=== PATIENT | male | born 1955 | race Caucasian/White ===

== ENCOUNTER 2017-09-13 17:09 | Inpatient (IN) | payer BC, OTHER ==
[2017-09-13] MEDS ORDERED: HYDROmorphONE/DILAUDID 1 MG/ML INJ ONE (17:42)
--- NOTE | 2017-09-13 17:43 | EDPHY ---
H & P Stated Complaint: r knee replacement monday now with fever/redness r knee Time Seen by Provider: 09/13/17 17:35 HPI/ROS: CHIEF COMPLAINT: Here for IV antibiotics HISTORY OF PRESENT ILLNESS: 61-year-old male with diabetes, 2 days s/p TKR, presents with fever and postoperative cellulitis. Onset of fever to 103 this morning. Associated with increasing pain rt knee. The pain is moderate to severe and unrelieved with oxycodone. He was seen by JALEN Argueta, just prior to arrival. Arthrocentesis of the right knee performed and revealed bloody fluid. The joint fluid was sent to the [facility] lab for analysis. Pt was sent to the emergency department for a first dose of IV vancomycin. His only c/ o is right knee pain and fever. No antipyretics today. REVIEW OF SYSTEMS: complete 10 point ROS negative except at noted in the HPI - Personal History Current Tetanus/Diphtheria Vaccine: Yes - Medical/Surgical History Hx Asthma: No Hx Chronic Respiratory Disease: No Hx Diabetes: Yes Hx Cardiac Disease: No Hx Renal Disease: No Hx Cirrhosis: No Hx Alcoholism: No Hx HIV/AIDS: No Hx Splenectomy or Spleen Trauma: No Other PMH: r knee surg/ diabetic - Social History Smoking Status: Former smoker Drug Use: None Additional Social History: - Physical Exam Exam: General Appearance: Alert, pleasant, nontoxic-appearing Eyes: Pupils equal and round, no conjunctival pallor or injection ENT, Mouth: Mucous membranes moist Neck: Normal inspection Respiratory: Lungs are clear to auscultation Cardiovascular: Regular rate and rhythm Gastrointestinal: Abdomen is soft and nontender Neurological: A&O, nonfocal exam Skin: Warm and dry Extremities: Right knee-the surgical wound is clean dry and intact. There is surrounding patchy erythema, warmth and tenderness on the anterior aspect of the right knee, approx 5cm in diameter, mild edema of the lower leg without tenderness Psychiatric: Mood and affect normal Constitutional: Initial Vital Signs Temperature (C) 37.2 C 09/13/17 17:14 Heart Rate 113 H 09/13/17 17:14 Respiratory Rate 22 H 09/13/17 17:14 Blood Pressure 123/83 H 09/13/17 17:14 O2 Sat (%) 93 09/13/17 17:14 O2 Delivery Mode Room Air Allergies/Adverse Reactions: No Known Allergies Allergy (Unverified 09/13/17 17:12) Home Medications: Medication Instructions Recorded Hydrochlorothiazide [HCTZ (*)] 50 mg PO DAILY 09/13/17 Losartan Potassium 100 mg PO DAILY 09/13/17 Metformin HCl [Metformin 1000 mg] 1,000 mg PO BIDMEAL 09/13/17 Pantoprazole Sodium [Protonix 40mg 40 mg PO DAILY 09/13/17 (*)] Simvastatin 20 mg PO DAILY 09/13/17 Warfarin Sodium [Coumadin 5MG (*)] 5 mg PO DAILY 09/13/17 glipiZIDE [Glipizide] 20 mg PO BID 09/13/17 Cephalexin [Keflex (*)] 500 mg PO QID #20 cap 09/15/17 Polyethylene Glycol 3350 [Miralax 17 gm PO DAILY PRN pkt 09/15/17 17 gm (*)] Sennosides/Docusate Sodium 1 - 2 tab PO BID tab 09/15/17 [Senokot-S] Medical Decision Making ED Course/Re-evaluation: This patient presents with postoperative cellulitis RLE. Meets SIRS criteria. Initial lactate is 2.7. Pt meets severe sepsis protocol. IV normal saline 30 mL /kilogram IV given. Consulted Dr. Steiner about IV abx choice and she requests Ancef IV. Consulted Ping Nguyen, will give pt Ancef 2gm IV, plan to admit/ transfer patient. She will d/w Dr. Alexander and c/b. Consulted Dr. Alexander, will admit pt for IV abx. Requests formal ID consultation. Dr. Steiner saw pt in ED. Repeat lactate 1.7. BP/HR stable throughout ED stay. Hospitalist service consulted for admission. Differential Diagnosis: Differential diagnosis includes joint infection, DVT, UTI, influenza, cellulitis , pneumonia, abscess, meningitis. - Data Points Laboratory Results: Laboratory Results 09/13/17 17:35 09/13/17 17:35 Microbiology Results: MICROBIOLOGY 09/13/17 18:10 Blood Blood Culture - Preliminary 09/13/17 17:35 Blood Blood Culture - Preliminary Medications Given: Discontinued Medications Acetaminophen (Tylenol) 650 mg PO EDNOW ONE Stop: 09/13/17 18:03 Last Admin: 09/13/17 18:06 Dose: 650 mg Acetaminophen (Tylenol) 650 mg PO Q4HRS PRN PRN Reason: Pain, Mild/Fever, Can Take PO Stop: 03/12/18 19:42 Last Admin: 09/14/17 08:59 Dose: 650 mg Atorvastatin Calcium (Lipitor) 10 mg PO DAILY [facility] Stop: 03/13/18 08:59 Last Admin: 09/15/17 08:09 Dose: 10 mg Glipizide (Glucotrol) 20 mg PO BIDMEAL [facility] Stop: 03/13/18 07:59 Last Admin: 09/15/17 08:08 Dose: 20 mg Hydrochlorothiazide (Hydrochlorothiazide) 50 mg PO DAILY [facility] Stop: 03/13/18 08:59 Last Admin: 09/15/17 08:08 Dose: 50 mg Hydromorphone HCl (Dilaudid) 1 mg IVP EDNOW ONE Stop: 09/13/17 17:45 Last Admin: 09/13/17 17:50 Dose: 1 mg Hydromorphone HCl (Dilaudid) 0.2 - 1 mg IVP Q2 PRN PRN Reason: Pain, Severe Unable to Take PO Stop: 09/23/17 19:42 Last Admin: 09/14/17 00:37 Dose: 1 mg Hydromorphone HCl (Dilaudid) 2 mg PO Q4HRS PRN PRN Reason: Pain, Severe Able to Take PO Stop: 09/23/17 19:42 Last Admin: 09/15/17 12:10 Dose: 2 mg Sodium Chloride (Ns) 1,000 mls @ 0 mls/hr IV ONCE ONE PRN Reason: Wide Open Stop: 09/13/17 17:45 Last Admin: 09/13/17 17:49 Dose: 1,000 mls Sodium Chloride (Ns) 2,900 mls @ 5,800 mls/hr 30 ml/kg infuse over 30 min ( 2900 ml) IV EDNOW ONE PRN Reason: Protocol Stop: 09/13/17 18:32 Last Admin: 09/13/17 18:16 Dose: 1,900 mls Vancomycin/Sodium Chloride (Vancomycin 1 Gm (Premix)) 250 mls @ 250 mls/hr IV EDNOW ONE PRN Reason: Protocol Stop: 09/13/17 19:06 Last Admin: 09/13/17 18:50 Dose: Not Given Cefazolin Sodium/Dextrose (Ancef 2 Gm) 100 mls @ 200 mls/hr IV EDNOW ONE PRN Reason: Protocol Stop: 09/13/17 18:44 Last Admin: 09/13/17 18:43 Dose: 100 mls Sodium Chloride (Ns) 1,000 mls @ 100 mls/hr IV CONT MICHELLE Stop: 03/12/18 19:44 Last Admin: 09/14/17 09:03 Dose: 1,000 mls Cefazolin Sodium 2 gm/ (Dextrose) 100 mls @ 200 mls/hr IV Q8H MICHELLE Stop: 10/14/17 01:59 Last Admin: 09/15/17 02:16 Dose: 100 mls Cefazolin Sodium/Dextrose (Ancef 2 Gm) 100 mls @ 200 mls/hr IV Q8H MICHELLE Stop: 10/15/17 09:59 Last Admin: 09/15/17 09:50 Dose: 100 mls Insulin Human Lispro (Humalog Lispro) 0 unit SC TIDMEAL MICHELLE PRN Reason: Protocol Stop: 03/13/18 17:59 Last Admin: 09/15/17 12:11 Dose: 2 units Losartan Potassium (Cozaar) 100 mg PO DAILY [facility] Stop: 03/13/18 08:59 Last Admin: 09/15/17 08:10 Dose: 100 mg Metformin HCl (Glucophage) 1,000 mg PO BIDMEAL [facility] Stop: 03/13/18 07:59 Last Admin: 09/15/17 08:08 Dose: 1,000 mg Methocarbamol (Robaxin) 750 mg PO TID PRN PRN Reason: Spasms Stop: 03/13/18 15:14 Last Admin: 09/15/17 08:09 Dose: 750 mg Pantoprazole Sodium (Protonix) 40 mg PO DAILY [facility] Stop: 03/13/18 08:59 Last Admin: 09/15/17 08:10 Dose: 40 mg Pneumococcal Polyvalent Vaccine (Pneumovax 23) 0.5 ml IM .ONCE ONE Stop: 09/14/17 16:01 Last Admin: 09/14/17 16:55 Dose: 0.5 ml Senna/Docusate Sodium (Senokot-S) 1 - 2 tab PO BID MICHELLE PRN Reason: Protocol Stop: 03/12/18 20:59 Last Admin: 05/25/18 08:09 Dose: 2 tab Warfarin Sodium (Coumadin) 5 mg PO DAILY@1600 MICHELLE Stop: 03/13/18 15:59 Last Admin: 09/14/17 15:35 Dose: 5 mg Departure - Departure Disposition: [facility] Acute Clinical Impression: Cellulitis Qualifiers: Site of cellulitis: extremity Site of cellulitis of extremity: lower extremity Laterality: right Qualified Code(s): L03.115 - Cellulitis of right lower limb Condition: Fair
[2017-09-13] MEDS ORDERED: NS 1,000 ML IV ONE (17:44)
[2017-09-13] MEDS ORDERED: HYDROmorphONE/DILAUDID 2 MG/ML INJ IVP ONE (17:44)
[2017-09-13 17:58] LABS: PLATELET COUNT 236 10^3/uL (150-400)
[2017-09-13] MEDS ORDERED: ACETAMINOPHEN 325 MG TAB PO ONE (18:02)
[2017-09-13] MEDS ORDERED: NS 2,900 ML IV ONE (18:03)
[2017-09-13] MEDS ORDERED: VANCOMYCIN HCL/NORMAL SALINE 250 ML IV ONE (18:07)
[2017-09-13] MEDS ORDERED: ceFAZolin 2 GM/DEXTROSE 100 ML IV ONE (18:15)
[2017-09-13] MEDS ORDERED: ONDANSETRON DISINTEGRATING 4 MG TAB PO PRN (19:43)
[2017-09-13] MEDS ORDERED: ONDANSETRON 4 MG/2 ML VIAL IVP PRN (19:43)
[2017-09-13] MEDS ORDERED: IBUPROFEN 200 MG TAB PO PRN (19:43)
[2017-09-13] MEDS ORDERED: ACETAMINOPHEN 325 MG TAB PO PRN (19:43)
[2017-09-13] MEDS ORDERED: LACTULOSE 20 GM/30 ML UDCUP PO PRN (19:45)
[2017-09-13] MEDS ORDERED: BISACODYL 10 MG SUPP PR PRN (19:45)
[2017-09-13] MEDS ORDERED: MAGNESIUM HYDROXIDE 30 ML UDCUP PO PRN (19:45)
[2017-09-13] MEDS ORDERED: POLYETHYLENE GLYCOL 3350 17 GM PKT PO PRN (19:45)
[2017-09-13] MEDS: HYDROmorphONE/DILAUDID 1 MG/ML INJ IVP PRN (20:46)
[2017-09-13] MEDS: SENNOSIDES/DOCUSATE SODIUM TAB PO SCH (22:35)
[2017-09-13] MEDS: HYDROmorphONE/DILAUDID 2 MG TAB PO PRN (22:35)
[2017-09-13] MEDS: NS 1,000 ML IV SCH (22:47)
--- NOTE | 2017-09-13 23:26 | GCON ---
[f rep st] CONSULTATION INFECTIOUS DISEASE CONSULTATION DATE OF CONSULTATION: 09/13/2017 REFERRING PHYSICIAN: Hortensia Alexander MD REASON FOR CONSULTATION: Cellulitis versus septic arthritis following right total knee arthroplasty 09/11/2017. HISTORY OF PRESENT ILLNESS: A 61-year-old male with type 2 diabetes, who underwent a right total kne e arthroplasty 09/11/2017 at [facility]. He received perioperative antibiotics, but before that last rec eived antibiotics 2 months ago for a dental extraction. He thinks it was amoxicillin. Patient initi ally did well following his procedure, but the day after discharge he developed massive pain of the r ight leg, decreased ability to flex his knee, inability to sleep due to the pain, and a temperature t o 101. He also described associated malaise. He was seen by Dr. Alexander's PA earlier today, and unde rwent a joint aspiration, which revealed bloody fluid. Cultures and Gram stain are pending. Cell count was not sent. Patient denies any history of MRSA. He has had a multitude of prior orthopedic surgeries without inf ectious complications previously. REVIEW OF SYSTEMS: A complete 10-point review of systems was performed, and is negative except as me ntioned in the HPI. Patient notes a GI illness 2 weeks ago that is now completely resolved. No rece nt significant weight loss or weight gain. PAST MEDICAL AND SURGICAL HISTORY: Patient has had 8 arthroscopic procedures between his bilateral k nees. Bilateral shoulder surgery. Also, 8 surgeries between his 2 feet. Diabetes, with a last hemo globin A1c of 7.3. He has a hiatal hernia and hypertension. He states that he has been evaluated fo r coronary artery disease, and this is negative. ALLERGIES: NKDA. MEDICATIONS: Include glipizide, Protonix, metformin, insulin, hydrochlorothiazide, simvastatin, and oxycodone postoperatively, and losartan. FAMILY HISTORY: Positive for diabetes in his brother and coronary arteries in his brother, with sudd en at age 59. SOCIAL HISTORY: He has a remote history of tobacco over 30 years ago. He is . 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 No international travel. They have a dog, and he is originally from [email or web address]. PHYSICAL EXAMINATION: VITAL SIGNS: Blood pressure 153/74, heart rate is initially 113, down to 98. Respiratory rate 24. Saturation 96% on 2 L. Temperature 37.2. GENERAL: This is a very pleasant m trinh lying in bed. His is at bedside. HEENT: Fair dentition, moist mucous membranes. Pupils a re reactive bilaterally. No conjunctival hemorrhages. NECK: Supple. CARDIOVASCULAR: Borderline ta chycardia. Regular rate. No murmurs. CHEST: Clear to auscultation bilaterally. ABDOMEN: Soft, n ontender. EXTREMITIES: His right knee exam showed an anterior incision over the knee with susy in place. No purulent discharge. Patient had very faint erythema medially, somewhat unimpressive, wit hout lymphangitis. He had significant tenderness over palpation of the prepatellar bursa, and marked warmth, with significant pain with flexion of the knee. He had no Homans sign. Pulses were 2+ bila terally. NEUROLOGIC: He is alert oriented x4. Moving all 4 extremities equally. LABORATORY: White count 10, hematocrit 35, platelets of 236; 71% neutrophils, 12% lymphocytes, 14% m onocytes. Lactic acid 2.7. Creatinine 0.9, sodium 133, glucose 326. Blood cultures and synovial cu lture pending. No imaging was performed. ASSESSMENT AND PLAN: This is a 61-year-old male who underwent a right total knee arthroplasty at [facility] on 09/11/2017, who developed acute signs and symptoms of infection associated with his knee, with massive pain, malaise, and fever to 101. Skin exam is fairly unremarkable, with very mild unimpress jovanna erythema more medial to the knee incision. More impressively, patient with significant tendernes s to palpation over the knee itself with significant limited range of motion due to pain. Certainly, differential diagnosis is cellulitis versus septic arthritis. Current signs give me significant con cern for deeper infection. In the meantime, will follow cultures and start patient on high-dose Ancef for coverage of methicilli n-sensitive Staphylococcus aureus and streptococcus. Patient has minimal risk for methicillin-resist ant Staphylococcus aureus. No purulence was noted. Discussed the differential diagnosis with the chai orozco and his at the bedside, including chance of septic arthritis, need for washout, and prolon ged IV antibiotic therapy. We will continue to see this patient on a daily basis. Thank you for the consultation. /[id number]/MODL
--- NOTE | 2017-09-13 23:27 | PDGENHP ---
History and Physical - Chief Complaint Acute knee pain - History of Present Illness Primary orthopedist: Dr. Alexander HPI: 61-year-old male presenting with acute fever characterized as a temperature of a 103 degrees F with onset of symptoms on the morning of this presentation and associated with pain and swelling located in his right knee and proximal right lower extremity. Pain is exacerbated by both flexion and extension of the knee and has been somewhat alleviated by Dilaudid received in the emergency department. He also reports some constipation since being discharged home but has been alleviated with bowel regiment. He presented to the [facility], on aspirate was performed which demonstrated both white blood cells and red blood cells, and he was sent to the emergency department for IV antibiotics. Of note, the patient had right knee surgery on 09/[address] Alexander, and he was discharged home with oral Coumadin, no bridge. History Information - Allergies/Home Medication List Allergies/Adverse Reactions: No Known Allergies Allergy (Unverified 09/13/17 17:12) Home Medications: Hydrochlorothiazide [HCTZ (*)] 50 mg PO DAILY 09/13/17 [Last Taken Unknown] Losartan Potassium 100 mg PO DAILY 09/13/17 [Last Taken 09/13/17] Metformin HCl [Metformin 1000 mg] 1,000 mg PO BIDMEAL 09/13/17 [Last Taken 09/13 08:00] Pantoprazole Sodium [Protonix 40mg (*)] 40 mg PO DAILY 09/13/17 [Last Taken Unknown] Simvastatin 20 mg PO DAILY 09/13/17 [Last Taken Unknown] Warfarin Sodium [Coumadin 5MG (*)] 5 mg PO DAILY 09/13/17 [Last Taken 09/13/17] glipiZIDE [Glipizide] 20 mg PO BID 09/13/17 [Last Taken 09/13/17 08:00] I have personally reviewed and updated: family history, medical history, social history, surgical history - Past Medical History diabetes type 2 (With oral agents, most recent hemoglobin A1c 7.3% April 2017) - Surgical History Additional surgical history: 09/11 right total knee arthroplasty. Bilateral foot surgery. Bilateral shoulder surgery. Bilateral knee surgery - Family History Additional family history: No family history of venous thromboembolism - Social History Smoking Status: Former smoker Alcohol Use: None Drug Use: None Additional social history: Previously independent in ADLs Review of Systems Review of Systems: ROS: 10pt was reviewed & negative except for what was stated in HPI & below Constitutional: Reports: fever Gastrointestinal: Reports: constipation Muscolosketal: Reports: joint pain, joint swelling Skin: Reports: other (Swelling right lower extremity) Physical Exam Physical Exam: Temp Pulse Resp BP Pulse Ox 37.2 C 101 H 18 154/87 H 92 09/13/17 17:14 09/13/17 21:10 09/13/17 21:10 09/13/17 21:10 09/13/17 21:10 O2 (L/minute) 2 Constitutional: no apparent distress, appears nourished, not in pain, uncomfortable Eyes: PERRL, anicteric sclera, EOMI Ears, Nose, Mouth, Throat: moist mucous membranes, hearing normal, ears appear normal, no oral mucosal ulcers Cardiovascular: tachycardia, edema (1+ right lower extremity), No systolic murmur, No irregularly irregular Respiratory: no respiratory distress, no rales or rhonchi, clear to auscultation Gastrointestinal: normoactive bowel sounds, soft, non-tender abdomen, no palpable masses, No guarding, No distension Skin: other (Warmth, blanching over the right knee with mild erythema) Musculoskeletal: other (Pain on full extension of right knee, pain with flexion at 30 degrees) Neurologic: AAOx3, sensation intact bilaterally (Distal to the right knee), No weakness (Full range of motion right ankle) Psychiatric: interacting appropriately, not anxious, not encephalopathic, thought process linear Lab Data & Imaging Review 09/13/17 17:35 09/13/17 17:35 WBC 10.18 10^3/uL (3.80-9.50) H 09/13/17 17:35 RBC 4.20 10^6/uL (4.40-6.38) L 09/13/17 17:35 Hgb 11.9 g/dL (13.7-17.5) L 09/13/17 17:35 Hct 35.0 % (40.0-51.0) L 09/13/17 17:35 MCV 83.3 fL (81.5-99.8) 09/13/17 17:35 MCH 28.3 pg (27.9-34.1) 09/13/17 17:35 MCHC 34.0 g/dL (32.4-36.7) 09/13/17 17:35 RDW 13.5 % (11.5-15.2) 09/13/17 17:35 Plt Count 236 10^3/uL (150-400) 09/13/17 17:35 MPV 11.8 fL (8.7-11.7) H 09/13/17 17:35 Neut % (Auto) 71.4 % (39.3-74.2) 09/13/17 17:35 Lymph % (Auto) 12.3 % (15.0-45.0) L 09/13/17 17:35 [place] % (Auto) 14.4 % (4.5-13.0) H 09/13/17 17:35 Eos % (Auto) 0.8 % (0.6-7.6) 09/13/17 17:35 Baso % (Auto) 0.7 % (0.3-1.7) 09/13/17 17:35 Nucleat RBC Rel Count 0.0 % (0.0-0.2) 09/13/17 17:35 Absolute Neuts (auto) 7.27 10^3/uL (1.70-6.50) H 09/13/17 17:35 Absolute Lymphs (auto) 1.25 10^3/uL (1.00-3.00) 09/13/17 17:35 Absolute Monos (auto) 1.47 10^3/uL (0.30-0.80) H 09/13/17 17:35 Absolute Eos (auto) 0.08 10^3/uL (0.03-0.40) 09/13/17 17:35 Absolute Basos (auto) 0.07 10^3/uL (0.02-0.10) 09/13/17 17:35 Absolute Nucleated RBC 0.00 10^3/uL (0-0.01) 09/13/17 17:35 Immature Gran % 0.4 % (0.0-1.1) 09/13/17 17:35 Immature Gran # 0.04 10^3/uL (0.00-0.10) 09/13/17 17:35 VBG Lactic Acid 1.7 mmol/L (0.7-2.1) 09/13/17 19:27 Sodium 133 mEq/L (135-145) L 09/13/17 17:35 Potassium 4.3 mEq/L (3.3-5.0) 09/13/17 17:35 Chloride 99 mEq/L (97-110) 09/13/17 17:35 Carbon Dioxide 21 mEq/l (22-31) L 09/13/17 17:35 Anion Gap 13 mEq/L (8-16) 09/13/17 17:35 BUN 17 mg/dL (7-23) 09/13/17 17:35 Creatinine 0.9 mg/dL (0.7-1.3) 09/13/17 17:35 Estimated GFR > 60 09/13/17 17:35 Glucose 326 mg/dL (70-100) H 09/13/17 17:35 Calcium 8.6 mg/dL (8.5-10.4) 09/13/17 17:35 Synovial Source SYNOVIAL 09/13/17 16:20 Synovial Color RED (CLS/PALE YL) 09/13/17 16:20 Synovial Appearance HAZY (CLEAR) H 09/13/17 16:20 Synovial WBC 2868 /mm3 (0-150) H 09/13/17 16:20 Synovial RBC 312985 /mm3 (0-0) H 09/13/17 16:20 Synovial Neutrophils 96 % (0-25) H 09/13/17 16:20 Synovial Lymphocytes 3 % 09/13/17 16:20 Synov Monos/Macrophage 1 % 09/13/17 16:20 Assessment & Plan Assessment: 61-year-old male presents with acute fever and right lower extremity pain and swelling, suggestive of possible septic arthritis following recent right knee surgery Plan: 1. Possible septic arthritis. Acute, new problem this provider, further workup indicated. Arthrocentesis demonstrating bloody fluid with many white blood cells, area painful, swollen, orthopedics requesting IV antibiotics -discussed with Dr. Carol Varela, she reports to me that infectious Diseases been consulted and IV Ancef has been recommended -will order outside records including culture results from arthrocentesis sent from Dr. Alexander office -if there are no organisms in the arthrocentesis, it is possible that the affected area may be more cellulitic in nature and will continue monitoring the patient's skin and joint exam -monitor white blood cell count 2. Acute metabolic acidosis. Secondary to hypovolemia in the setting of infection, initial lactic acid 2.7, downtrend to 1.7 with IV fluids 3. Diabetes mellitus type 2 with hyperglycemia. Reviewed outside records including previous historic hemoglobin A1c of 6.5% on 10/23/2008, patient reports he was most recently 7.3%, and has been reasonably controlled on oral home medications -continue home medications -if patient's level is substantially elevated in a.m., continue him on insulin sliding scale 4. Osteoarthritis. Recent right total knee surgery at [facility] on 2017 -requires ongoing DVT prevention, check INR in a.m., continue Coumadin, held today's dose given the potential of hemarthrosis -SCDs in the interim -defer to Orthopedics whether they would like to continue pharmacologic prophylaxis or mechanical, given the potential of concomitant heme arthrosis Diet. Diabetic Prophylaxis. SCDs tonight, continue Coumadin tomorrow checking daily INR Code. Full per patient, is POEstella Disposition. Anticipated discharge is 09/14, pending clinical improvement of above. If patient requires joint washout, he will require upgraded to inpatient admission status for surgical debridement and ongoing use of IV antibiotics
[2017-09-14] MEDS: HYDROmorphONE/DILAUDID 1 MG/ML INJ IVP PRN (00:37)
[2017-09-14] MEDS: ceFAZolin 2 GM in D5W 100 ML IV SCH ×3 (01:15→17:59)
[2017-09-14] MEDS ORDERED: ceFAZolin 2 GM/DEXTROSE 100 ML IV SCH (02:00)
[2017-09-14 04:41] LABS: PLATELET COUNT 196 10^3/uL (150-400)
[2017-09-14 04:43] LABS: INR 1.48 (0.83-1.16); PROTIME(PATIENT) 18.1 SEC (12.0-15.0)
[2017-09-14] MEDS: HYDROmorphONE/DILAUDID 2 MG TAB PO PRN ×4 (06:02→19:46)
[2017-09-14] MEDS: LOSARTAN POTASSIUM 50 MG TAB PO SCH (08:58)
[2017-09-14] MEDS: metFORMIN HCL 500 MG TAB PO SCH ×2 (08:59→17:58)
[2017-09-14] MEDS: ATORVASTATIN CALCIUM 10 MG TAB PO SCH (08:59)
[2017-09-14] MEDS ORDERED: ENOXAPARIN 40 MG/0.4 ML SYR SC SCH (09:00)
[2017-09-14] MEDS: HYDROCHLOROTHIAZIDE 50 MG TAB PO SCH (09:00)
[2017-09-14] MEDS: SENNOSIDES/DOCUSATE SODIUM TAB PO SCH ×2 (09:00→19:47)
[2017-09-14] MEDS: PANTOPRAZOLE SODIUM 40 MG TAB PO SCH (09:00)
[2017-09-14] MEDS: glipiZIDE 10 MG TAB PO SCH ×2 (09:00→17:58)
[2017-09-14] MEDS: NS 1,000 ML IV SCH (09:03)
--- NOTE | 2017-09-14 09:30 | ASMTCASEMG ---
Living Arrangements What is your living Answers: With Spouse arrangement? Who do you live with? Type Of Residence What kind of residence do Answers: House you live in? Discharge Plan Comments Coordination Status Comments Notes: Pt is a 61 y/o man admitted for rle cellulitis. Therapies have been ordered and awaiting recommendations. Needs are TBD at this time. CM to follow. Plan: TBD Date Signed: 09/14/2017 09:29 AM Electronically Signed By:SENAIT Newman
--- NOTE | 2017-09-14 09:43 | HOSPPROG ---
Hospitalist Progress Note Assessment/Plan: Carl English is a 61-year-old male who underwent a right total knee arthroplasty at [facility] on September 11. He developed increased pain, malaise and fever to 101. The patient is having significant tenderness over the knee itself with limited range of motion. Today is my 1st encounter with the patient. Chart reviewed. * septic arthritis versus cellulitis -appreciate Infectious Disease seeing the patient -he is on high-dose Ancef for coverage of MSSA and Streptococcus -wbc count in synovial fluid is 2868, high rbc count, appears to be more r/t inflammatory response * metabolic acidosis -resolved *anemia -from recent surgery * diabetes type 2 -glucoses elevated -add sliding scale insulin * osteoarthritis * DVT prophylaxis -on sequential hose as well as Coumadin * reviewed his care w ID, Dr Malone, will require another midnight stay for IV antibiotics Subjective: Carl is c/o ongoing pain to his right knee. Objective: Vital Signs Temp Pulse Resp BP Pulse Ox 36.7 C 96 16 169/91 H 97 09/14/17 07:52 09/14/17 07:52 09/14/17 07:52 09/14/17 08:58 09/14/17 07:52 Laboratory Results 09/14/17 04:20 09/14/17 04:20 09/13/17 09/14/17 09/15/17 05:59 05:59 05:59 Intake Total 3940 Output Total 700 Balance 3240 PT 18.1 SEC (12.0-15.0) H 09/14/17 04:20 INR 1.48 (0.83-1.16) H 09/14/17 04:20 - Physical Exam Constitutional: appears nourished, uncomfortable Eyes: PERRL Ears, Nose, Mouth, Throat: hearing normal Cardiovascular: regular rate and rhythym Respiratory: no respiratory distress Skin: warm, other (right knee area with dressing in place, redness and warmth noted below the knee area down the calf) ICD10 Worksheet Patient Problems: Problems Problem Status Onset Cellulitis Acute
[2017-09-14] MEDS ORDERED: PNEUMOCOCCAL 0.5ML VACCINE VIAL IM ONE ×2 (11:43→16:00)
--- NOTE | 2017-09-14 13:56 | PDMN ---
Medical Necessity Medical necessity: Pt meets INPT criteria per and [facility] M-70 Cellulitis ( septic arthritis vs cellulitis in pt who underwent TKA 09/11/17; requiring high- dose IV Ancef; hx DM; est. LOS >2 MN).
[2017-09-14] MEDS ORDERED: D50W 25 GM/50 ML SYR IVP PRN (15:08)
--- NOTE | 2017-09-14 15:18 | PDCONSULT ---
Pension Manager Note: Patient still with right knee pain and swelling, but is only 3 days postop. PE: moderate knee effusion, no wound drainage. There does seem to be some patchy erythema about the knee/ leg. Aspirate was consistent with blood, no organisms seen on gram stain. Cultures no growth, preliminary. Assess/Plan: Clinically more likely to represent postoperative hemarthrosis with possible early cellulitis. Certainly if the deep cultures reveal infection , he will need surgical treatment. Otherwise, agree with antibiotics and will follow closely.
[2017-09-14] MEDS: METHOCARBAMOL 500 MG TAB PO PRN (15:34)
[2017-09-14] MEDS ORDERED: WARFARIN SODIUM 5 MG TAB PO SCH (16:00)
[2017-09-14] MEDS: INSULIN LISPRO 100 UNIT/ML SC SCH (16:54)
--- NOTE | 2017-09-14 17:13 | PCMIDPN ---
Assessment/Plan: Assessment: Right knee inflammation-unclear if this represents infection versus hemarthrosis. The cell count of the fluid drawn from the knee just prior to admission is more consistent with blood. There is no growth in culture at this point. Plan to continue IV cefazolin for the next day and allow maturation of the culture. If the culture continues to show no growth then potentially we can change him to oral antibiotic for short 7 day course directed to soft tissue cellulitis and allow him to go home. Case discussed with Dr. Alexander. Plan: 1. Continue IV cefazolin. 2. Follow the joint fluid culture closely. 3. Possible change to oral antibiotics and discharge if no further concerning data uncovered. 09/14/17 17:13 Subjective: Patient is resting in his hospital bed. He has 2 visitors. He has no new complaint. States that his knee is still somewhat painful to put weight on. It is less swollen than admission. No fevers or chills currently although he did have some fever prior to admission. Objective: Cefazolin # 1 Vital Signs Temp Pulse Resp BP Pulse Ox 36.8 C 109 H 18 165/93 H 96 09/14/17 15:33 09/14/17 15:33 09/14/17 15:33 09/14/17 15:33 09/14/17 15:33 Laboratory Results 09/14/17 04:20 09/14/17 04:20 09/13/17 09/14/17 09/15/17 05:59 05:59 05:59 Intake Total 3940 450 Output Total 700 200 Balance 3240 250 - Physical Exam General Appearance: WD/WN, alert, no apparent distress, non-toxic Respiratory: lungs clear, normal breath sounds, No respiratory distress Cardiac/Chest: regular rate, rhythm, No bradycardia, No systolic murmur Extremities: inflammation (Mild right knee), erythema (Mild right knee), No non- tender, No normal inspection Skin: normal color, warm/dry, No rash Neuro/Psych: alert, normal mood/affect, oriented x 3 ICD10 Worksheet Patient Problems: Problems Problem Status Onset Cellulitis Acute
[2017-09-15] MEDS: HYDROmorphONE/DILAUDID 2 MG TAB PO PRN ×3 (02:16→12:10)
[2017-09-15] MEDS: ceFAZolin 2 GM in D5W 100 ML IV SCH (02:16)
[2017-09-15 05:19] LABS: INR 1.32 (0.83-1.16); PROTIME(PATIENT) 16.6 SEC (12.0-15.0)
[2017-09-15 07:38] VITALS: BP 144/84
[2017-09-15] MEDS: metFORMIN HCL 500 MG TAB PO SCH (08:08)
[2017-09-15] MEDS: glipiZIDE 10 MG TAB PO SCH (08:08)
[2017-09-15] MEDS: HYDROCHLOROTHIAZIDE 50 MG TAB PO SCH (08:08)
[2017-09-15] MEDS: SENNOSIDES/DOCUSATE SODIUM TAB PO SCH (08:09)
[2017-09-15] MEDS: METHOCARBAMOL 500 MG TAB PO PRN (08:09)
[2017-09-15] MEDS: ATORVASTATIN CALCIUM 10 MG TAB PO SCH (08:09)
[2017-09-15] MEDS: LOSARTAN POTASSIUM 50 MG TAB PO SCH (08:10)
[2017-09-15] MEDS: PANTOPRAZOLE SODIUM 40 MG TAB PO SCH (08:10)
[2017-09-15] MEDS: INSULIN LISPRO 100 UNIT/ML SC SCH ×2 (08:11→12:11)
--- NOTE | 2017-09-15 09:10 | SOAPPROG ---
SOAP Progress Note Assessment/Plan: Assessment:Pt. is POD #4 s/p Right TKA. He was admitted for possible cellulitis of the right knee after presenting to the orthopedic urgent care with a fever and some redness at the medial incision line. He was admitted to [facility] 2 days ago for IV antibiotics as we await knee aspirate culture results. Plan: Continue to watch for culture results and likely discharge pt on po antibiotics today if they remain negative. Pts. INR is 1.3, Dr. Alexander would like to increase pts. coumadin to 7.5 mg today and then alternate 5mg./7.5 mg. every other day. Called Pharmacy to put order in so that it was clear. Continue PT/OT WBAT Ice Continue pain medications Continue SCD's Follow up with Dr. Alexander in the office next Monday or in [place]- call [phone] to schedule. Will continue to follow at [facility]. Subjective: Pt. is still having a lot of pain and difficulty in initiating movement of the leg. The redness has improved, no further fevers, pt. has been feeling well with no DELEON's, body aches, SOB, CP, calf pain, N/T of the extremities. Objective: Pt. is awake, sitting up in bed answering questions appropriately, in NAD. Respirations easy, no diaphoresis. The right knee incision is well healing, clean with no redness or warmth around it. It appears to be improved. There is warmth to the lower leg and ecchymosis at the medial upper thigh as well as below the incision in the lower leg. Calves are soft and supple with no tenderness. Pt. is NVI to the RLE. 09/15/17 08:56 Objective: Vital Signs Temp Pulse Resp BP Pulse Ox 36.7 C 94 16 144/84 H 96 09/15/17 07:37 09/15/17 07:37 09/15/17 07:37 09/15/17 08:10 09/15/17 07:37 Laboratory Results 09/14/17 04:20 09/14/17 04:20 09/14/17 09/15/17 09/16/17 05:59 05:59 05:59 Intake Total 3940 750 Output Total 700 200 Balance 3240 550 PT 16.6 SEC (12.0-15.0) H 09/15/17 04:25 INR 1.32 (0.83-1.16) H 09/15/17 04:25 ICD10 Worksheet Patient Problems: Problems Problem Status Onset Cellulitis Acute
[2017-09-15] MEDS ORDERED: ceFAZolin 2 GM/DEXTROSE 100 ML IV SCH (10:00)
--- NOTE | 2017-09-15 11:21 | PCMIDPN ---
Assessment/Plan: Assessment: Right knee inflammation-unclear if this represents infection versus hemarthrosis. The cell count of the fluid drawn from the knee just prior to admission is more consistent with blood. There is no growth in culture still at this point. Plan to change person to oral Keflex 500 mg 4 times a day for total of 7 days. Patient can follow up as an outpatient at this point. 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 2. Continue to follow the joint fluid culture closely as an outpatient. 09/14/17 17:13 09/15/17 15:12 Subjective: Patient states that the knee feels about the same. Possibly a little less tender. No fevers or chills. Objective: Cefazolin # 2 Vital Signs Temp Pulse Resp BP Pulse Ox 36.7 C 94 16 144/84 H 96 09/15/17 07:37 09/15/17 07:37 09/15/17 07:37 09/15/17 08:10 09/15/17 07:37 Laboratory Results 09/14/17 04:20 09/14/17 04:20 09/14/17 09/15/17 09/16/17 05:59 05:59 05:59 Intake Total 3940 750 Output Total 700 200 Balance 3240 550 - Physical Exam General Appearance: WD/WN, alert, non-toxic Respiratory: lungs clear, normal breath sounds, No respiratory distress Cardiac/Chest: regular rate, rhythm, No tachycardia Extremities: inflammation (Mild right knee), erythema (Mild right knee), No non- tender, No normal inspection Skin: normal color, warm/dry, No rash Neuro/Psych: alert, normal mood/affect, oriented x 3 ICD10 Worksheet Patient Problems: Problems Problem Status Onset Cellulitis Acute
--- NOTE | 2017-09-15 11:29 | HOSPPROG ---
Hospitalist Progress Note Assessment/Plan: Carl English is a 61-year-old male who underwent a right total knee arthroplasty at [facility] on September 11. He developed increased pain, malaise and fever to 101. The patient is having significant tenderness over the knee itself with limited range of motion. *Right knee inflammation- infection versus hemarthrosis. -appreciate Infectious Disease seeing the patient -reviewed his care w Turned, will dc home on Keflex * metabolic acidosis -resolved *anemia -from recent surgery * diabetes type 2 -glucoses elevated -A1c is 8.1 with average glucose of 14 -patient says he takes insulin prn, not really checking glucoses and sliding scale * osteoarthritis * DVT prophylaxis -on sequential hose as well as Coumadin *Plan: dc home w close f/u with orthopedics, he needs a PCP in the [place] area , needs INR followed. * Subjective: Carl said his knee is feeling better. Objective: Vital Signs Temp Pulse Resp BP Pulse Ox 36.7 C 94 16 144/84 H 96 09/15/17 07:37 09/15/17 07:37 09/15/17 07:37 09/15/17 08:10 09/15/17 07:37 Laboratory Results 09/14/17 04:20 09/14/17 04:20 09/14/17 09/15/17 09/16/17 05:59 05:59 05:59 Intake Total 3940 750 Output Total 700 200 Balance 3240 550 PT 16.6 SEC (12.0-15.0) H 09/15/17 04:25 INR 1.32 (0.83-1.16) H 09/15/17 04:25 - Physical Exam Constitutional: no apparent distress, appears nourished Eyes: PERRL Ears, Nose, Mouth, Throat: hearing normal Cardiovascular: regular rate and rhythym Respiratory: no respiratory distress Skin: warm, other (right lower ext w less swelling) Musculoskeletal: muscular tenderness Neurologic: AAOx3 Psychiatric: interacting appropriately ICD10 Worksheet Patient Problems: Problems Problem Status Onset Cellulitis Acute
--- NOTE | 2017-09-15 12:53 | GDS ---
[f rep st] DISCHARGE SUMMARY DISCHARGE DIAGNOSES: 1. Right knee inflammation, questionable cellulitis versus hemiarthrosis. 2. Metabolic acidosis. 3. Anemia. 4. Diabetes type 2. 5. Osteoarthritis. CONSULTATIONS: 1. Dr. Alexander. 2. Dr. Farooq Malone. HISTORY: Briefly, the patient is a 61-year-old gentleman who underwent a right total knee arthroplasty at [facility] on September 11. Developed increased pain, malaise , fever, and tenderness over the right knee. He was admitted and evaluated for further care. HOSPITAL COURSE: 1. Right knee inflammation. This could be a possible beginning of a cellulitis versus hemiarthrosis. He has much less pain at this time. He will be discharged home on Keflex. 2. Metabolic acidosis, resolved. 3. Anemia from recent surgery. 4. Diabetes type 2. I reviewed with this patient his A1c is 8.1 with an average glucose that is elevated. He said he has been taking his insulin as needed and not really checking his glucoses. Recommended that he do close monitoring and use the sliding scale here . 5. Osteoarthritis, stable. DISCHARGE CONDITION: Stable. Blood pressure is 144/84, heart rate 94, respiratory rate 16, O2 sats on room air 96%, temperature 36.7 Celsius. DISCHARGE MEDICATIONS: Please see the EMR. DISCHARGE INSTRUCTIONS: 1. Get his INR checked as he did prior to this admission. 2. Close followup with a primary care provider. Recommended that he monitor his glucose better and get on a sliding scale insulin. He says he already has supplies at home. 3. If he develops fever, chills, chest pain, shortness of breath, or worsening pain, return to the ER. Greater than 30 minutes discharging and coordinating the patient's care. Copy requested to: Dr. Alexander /[id number]/MODL MTDD
--- NOTE | 2017-09-15 14:12 | ASMTCMCOM ---
CM Note CM Note Notes: Pt in for RLE cellulitis will d/c on oral antibiotics. Pt has blood draws at [facility] in [place] and has outpatient PT scheduled. Pt has an appointment with Dr. Alexander who did his TKA at [facility]. Pt provided the list of [facility] PCPs including [facility] in [place] to establish a PCP. Due to no PCP pt does not have access to [facility]. Date Signed: 09/15/2017 02:12 PM Electronically Signed By:ANKUR Gutierrez
[2017-09-15] MEDS ORDERED: WARFARIN SODIUM 7.5 MG TAB PO SCH (16:00)
[2017-09-16] MEDS ORDERED: WARFARIN SODIUM 5 MG TAB PO SCH (16:00)
== END 2017-09-15 14:09 | disposition home or self-care (01) | DRG 554 ==
LOC: OBSVTOIN 18:50 → F3N 21:34
PROVIDERS: ADMIT Internal Medicine; ATTEND Internal Medicine
DX: M25.061 Hemarthrosis, right knee (principal); L03.115 Cellulitis of right lower limb; E87.2 Acidosis; Z96.651 Presence of right artificial knee joint; D64.9 Anemia, unspecified; E11.65 Type 2 diabetes mellitus with hyperglycemia; Z23 Encounter for immunization; Z79.84 Long term (current) use of oral hypoglycemic drugs
CPT/HCPCS: 97116-GP; 97161-GP; 97165-GO; G0009; G0378; J0690; J1170; J1815